=== PATIENT | female | born 1975 | race Caucasian/White ===

== ENCOUNTER 2017-05-31 17:16 | Emergency (ER) | payer OTHER ==
[~2017-05-31] VITALS: Ht 175.3 cm; Wt 98.4 kg
[2017-05-31 18:08] LABS: HEMATOCRIT 37.9 % (36.0-46.0); MCH 28.6 PG (29.0-34.0); MCHC 33.2 G/DL (30.0-36.0); MCV 85.9 FL (83-99); MEAN PLAT.VOLUME 11.1 uM^3 (9.5-12.4); RBC DIS.WIDTH-CV 12.9 % (11.8-14.6); RBC DIS.WIDTH-SD 40.4 % (39-53); RED BLOOD COUNT 4.41 M/uL (3.80-5.20); WHITE BLOOD COUNT 6.8 K/uL (4.1-10.2)
[2017-05-31 18:15] LABS: CHLORIDE 104 mEq/L (99-109); POTASSIUM 3.6 mEq/L (3.7-5.4); SODIUM 137 mEq/L (136-147)
[2017-05-31 18:18] LABS: GLUCOSE 92 mg/dL (70-99)
[2017-05-31 18:19] LABS: ANION GAP 7 MEQ/L (2-14); TOTAL BILIRUBIN 0.6 mg/dL (0.0-1.0)
[2017-05-31 18:21] LABS: ALKALINE PHOSPHATASE 88 IU/L (3-129); GFR ESTIMATE (CALCULATED) > 59 mL/min/; PLATELET COUNT 299 K/uL (156-360)
[2017-05-31 18:22] LABS: UREA NITROGEN (BUN) 7 mg/dL (9-23)
[2017-05-31 18:31] LABS: QUANTITATIVE HCG < 4.0 MIU/ML
[2017-05-31 18:56] LABS: ADD MIUA? YES; BILIRUBIN NEGATIVE; BLOOD SMALL; COLOR STRAW ((YELLOW)); GLUCOSE (STRIP) NEGATIVE; KETONES NEGATIVE; LEUKOCYTES SMALL; NITRITE NEGATIVE; PROTEIN (STRIP) NEGATIVE; SPECIFIC GRAVITY 1.005 (1.000-1.030); UROBILINOGEN 0.2 MG/DL (0.2-1.0)
[2017-05-31 19:07] LABS: BACTERIA RARE /HPF; EPITHELIAL CELLS 1+ /HPF; MUCUS NONE SEEN /LPF; RED BLOOD CELLS 0-5 /HPF (0-5); UCUL ADDED? NO; WHITE BLOOD CELLS 0-5 /HPF (0-5)
[2017-05-31] MEDS ORDERED: ZOFRAN ODT4 MG PO (23:42)
[2017-05-31] MEDS ORDERED: NAPROXEN500 MG PO (23:42)
[2017-06-01 00:07] VITALS: BP 119/71
== END 2017-06-01 00:08 | disposition home or self-care (01) ==
LOC: EME 17:16 → RME 17:16
DX: R10.2 Pelvic and perineal pain (principal); R11.0 Nausea; D25.9 Leiomyoma of uterus, unspecified; F17.200 Nicotine dependence, unspecified, uncomplicated
CPT/HCPCS: 74000; 76856; 80053; 81003; 84702; 85027; 99281; 99284; J1885

== ENCOUNTER 2017-09-04 05:46 | Day surgery (SDC) | payer OTHER ==
[~2017-09-04] VITALS: Ht 175.3 cm; Wt 97.5 kg
[~2017-09-04 05:46] MED LIST: CYMBALTA60 MG PO; NAPROXEN500 MG PO; OXYCODONE HCL10 MG PO; SYNTHROID100 MCG PO; VITAMIN B COMP1 EACH PO; VITAMIN C500 M1 PO; XTAMPZA ER9 MG PO; ZANAFLEX4 MG PO; ZOFRAN ODT4 MG PO
[2017-09-04 06:25] VITALS: BP 119/69
[2017-09-04] MEDS ORDERED: MOTRIN800 MG PO (07:31)
[2017-09-04 10:15] VITALS: BP 145/80
[2017-09-04 11:17] VITALS: BP 146/78
[2017-09-04 12:30] VITALS: BP 143/92
== END 2017-09-04 12:30 | disposition home or self-care (01) ==
LOC: SDC 05:46
PROVIDERS: Obstetrics & Gynecology
DX: N84.0 Polyp of corpus uteri (principal); D25.9 Leiomyoma of uterus, unspecified; N83.8 Other noninflammatory disorders of ovary, fallopian tube and broad ligament; N93.8 Other specified abnormal uterine and vaginal bleeding; N92.0 Excessive and frequent menstruation with regular cycle; E03.9 Hypothyroidism, unspecified; L93.0 Discoid lupus erythematosus; M35.1 Other overlap syndromes; F17.200 Nicotine dependence, unspecified, uncomplicated; Z85.43 Personal history of malignant neoplasm of ovary; Z85.038 Personal history of other malignant neoplasm of large intestine; Z85.828 Personal history of other malignant neoplasm of skin
CPT/HCPCS: 81025; 88307; J0690; J1100; J1170; J1885; J2001; J2405; J2710; J2795; J3010; J3475; S0020